=== PATIENT | female | born 1955 | race Caucasian/White ===

== ENCOUNTER 2016-06-30 11:56 | Emergency (ER) | payer MEDICARE ==
[~2016-06-30] VITALS: Ht 175.3 cm; Wt 69.0 kg
[~2016-06-30 11:56] MED LIST: BIOT10TA PO; CHOL1CAP8 PO; CINN500C PO; GLUCTAB6 PO; HEMAPLEX; HYOS0.128 PO; LACTCHW3 CHEW; LEVO25TA4 PO; LOPE2CAP PO; MELA10TA2 PO; PROBCAP4 PO; SELE1TAB PO; ZOFR4TAB PO
[2016-06-30 11:58] VITALS: BP 197/95; PULSE 95; RESP 18; TEMP 98.4; O2SAT 98
[2016-06-30] MEDS ORDERED: ASPIRIN 81 MG CHEW TAB PO ONE (12:30)
[2016-06-30] MEDS ORDERED: SODIUM CHLORIDE 0.9% FLUSH 10 ML FLUSH IVF PRN (12:30)
[2016-06-30] MEDS: NITROGLYCERIN 0.4 MG SL 25 TABS/BTL SL SCH ×3 (12:35→12:41)
[2016-06-30 12:42] VITALS: BP 175/105; PULSE 89; RESP 18; O2SAT 98
[2016-06-30 12:44] LABS: AUTOMATED NEUTROPHIL # 5.5 TH/MM3 (1.8-7.7); BASOPHIL # 0.1 TH/MM3 (0-0.2); BASOPHIL % 0.9 % (0.0-2.0); EOSINOPHIL # 0.1 TH/MM3 (0-0.4); EOSINOPHIL % 1.8 % (0.0-4.0); HEMATOCRIT 39.3 % (35.0-46.0); HEMO FLAGS DIFF FINAL; LYMPH % 18.7 % (9.0-44.0); LYMPHOCYTE # 1.5 TH/MM3 (1.0-4.8); MEAN CORPUSCULAR HGB CONC 33.4 % (32.0-36.0); MONO % 8.6 % (0.0-8.0); PLATELET COUNT 290 TH/MM3 (150-450); RED BLOOD COUNT 4.52 MIL/MM3 (4.00-5.30); RED CELL DISTRIBUTION WIDTH 13.6 % (11.6-17.2); WHITE BLOOD COUNT 7.9 TH/MM3 (4.0-11.0)
[2016-06-30] MEDS ORDERED: diphenhydrAMINE HCL 50 MG/ML VIAL IV PUSH ONE (12:45)
[2016-06-30 12:54] LABS: CHLORIDE 104 MEQ/L (98-107); POTASSIUM 3.6 MEQ/L (3.5-5.1); SODIUM (NA) 141 MEQ/L (136-145)
[2016-06-30 12:56] VITALS: BP 139/92; PULSE 93; RESP 18; O2SAT 98
[2016-06-30 12:57] LABS: ANION GAP 8 MEQ/L (5-15); BLOOD UREA NITROGEN 16 MG/DL (7-18); MAGNESIUM 1.9 MG/DL (1.5-2.5)
[2016-06-30 13:00] LABS: GLOMERULAR FILTRATION RATE 83 ML/MIN (>89)
[2016-06-30 13:03] LABS: APTT (PATIENT) 26.6 SEC (24.3-30.1); CREATINE KINASE 166 U/L (26-192); INTERNATIONAL NORMALIZED RATIO 0.9 RATIO
--- NOTE | 2016-06-30 13:04 | RADHPO ---
EXAM DATE/TIME: 06/30/2016 12:29 [facility] COMPARISON: No previous studies available for comparison. INDICATIONS : Chest pain. MEDICAL HISTORY : None. SURGICAL HISTORY : None. ENCOUNTER: Initial ACUITY: 1 day PAIN SCORE: 4/10 LOCATION: Bilateral chest FINDINGS: A single view of the chest demonstrates the lungs to be symmetrically aerated without evidence of mas s, infiltrate or effusion. The cardiomediastinal contours are unremarkable. Osseous structures are intact. CONCLUSION: 1. No acute cardiopulmonary disease. 1. Jan Summers MD on June 30, 2016 at 13:03 Board Certified Radiologist. This report was verified electronically.
[2016-06-30 13:16] LABS: CKMB 2.1 NG/ML (0.5-3.6)
[2016-06-30] MEDS ORDERED: IOHEXOL 350 MG/ML 10 ML VIAL (for RAD DIAG) IV ONE (13:57)
[2016-06-30 14:01] VITALS: BP 174/95; PULSE 81; RESP 18; O2SAT 99
--- NOTE | 2016-06-30 15:02 | RADHPO ---
EXAM DATE/TIME: 06/30/2016 13:33 [facility] COMPARISON: No previous studies available for comparison. INDICATIONS : Chest pressure. Short of breath. IV CONTRAST: 75 cc Omnipaque 350 (iohexol) IV RADIATION DOSE: 10.25 CTDIvol (mGy) MEDICAL HISTORY : Hypothyroidism. SURGICAL HISTORY : None. ENCOUNTER: Initial ACUITY: 1 day PAIN SCALE: 2/10 LOCATION: chest TECHNIQUE: Volumetric scanning of the chest was performed using a pulmonary embolism protocol MIP images were re constructed. Using automated exposure control and adjustment of the mA and/or kV according to patien t size, radiation dose was kept as low as reasonably achievable to obtain optimal diagnostic quality images. FINDINGS: PULMONARY ARTERIES: No filling defects are seen in the pulmonary arteries through the segmental level. LUNGS: Linear atelectasis seen involving the posterior segment of the right upper lobe adjacent to the major fissure. The lungs are otherwise clear. No mass or infiltrate. PLEURAE: There is no pleural thickening or pleural effusion. MEDIASTINUM: There is good visualization of the great vessels of the middle mediastinum. No evidence of mediastin al or hilar adenopathy/mass. MUSCULOSKELETAL: Within normal limits for patient age. MISCELLANEOUS: The visualized upper abdominal organs demonstrate no acute abnormality. CONCLUSION: 1. No PE. Minimal right upper lobe atelectasis. Gustavo Archuleta Jr., MD on June 30, 2016 at 14:56 Board Certified Radiologist. This report was verified electronically.
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
[2016-06-30 15:21] VITALS: BP 189/103; PULSE 82; O2SAT 98
--- NOTE | 2016-07-02 21:39 | EKG ---
Date Performed: 06/30/2016 Time Performed: 12:02:08 PTAGE: 61 years EKG: Sinus rhythm Normal ECG PREVIOUS TRACING : 11/02/2013 11.05 DOCTOR: Garry Calderon Interpretating Date/Time 07/02/2016 21:33:41
[2016-08-15] MEDS ORDERED: TRIA40P I-ARTICULR (14:07)
== END 2016-06-30 15:49 | disposition home or self-care (01) ==
LOC: PHED 11:56
DX: R07.89 Other chest pain (principal); E03.9 Hypothyroidism, unspecified; T78.40XA Allergy, unspecified, initial encounter
CPT/HCPCS: 71010; 71275; 80048; 82550; 82552; 83735; 84484; 85025; 85379; 85610; 85730; 93005; 96374; 99285; J1200; Q9967

== ENCOUNTER 2016-07-03 11:16 | Emergency (ER) | payer MEDICARE ==
[~2016-07-03] VITALS: Ht 175.3 cm; Wt 69.0 kg
[~2016-07-03 11:16] MED LIST changes: -HEMAPLEX
[2016-07-03 11:32] VITALS: BP 140/88; PULSE 98; RESP 18; TEMP 98.4; O2SAT 96
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
[2016-07-03] MEDS ORDERED: TRIA.1%T TOPICAL (12:21)
[2016-07-03] MEDS ORDERED: VIST25CA PO (12:21)
[2016-08-15] MEDS ORDERED: TRIA40P I-ARTICULR (14:07)
== END 2016-07-03 12:35 | disposition home or self-care (01) ==
LOC: PHEFT 11:16
DX: L29.9 Pruritus, unspecified (principal); D64.9 Anemia, unspecified; M19.90 Unspecified osteoarthritis, unspecified site; Z87.891 Personal history of nicotine dependence; Z79.899 Other long term (current) drug therapy

== ENCOUNTER 2016-11-28 14:57 | Emergency (ER) | payer MEDICARE ==
[~2016-11-28] VITALS: Ht 175.3 cm; Wt 70.0 kg
[~2016-11-28 14:57] MED LIST changes: -BIOT10TA PO; -CHOL1CAP8 PO; -CINN500C PO; -GLUCTAB6 PO; -HYOS0.128 PO; -LACTCHW3 CHEW; -LOPE2CAP PO; -MELA10TA2 PO; +NAPR500T PO; -PROBCAP4 PO; -SELE1TAB PO; +TRIAM.1%T TOPICAL; -ZOFR4TAB PO
[2016-11-28] MEDS ORDERED: IOHEXOL 350 MG/ML 10 ML VIAL (for RAD DIAG) IVCONTRAST ONE (14:58)
[2016-11-28 14:59] VITALS: BP 175/78; PULSE 79; RESP 18; TEMP 97.8; O2SAT 98
--- NOTE | 2016-11-28 15:14 | PD ---
Physical Exam Time Seen by Provider: 15:12 Narrative 61yo F sent by GI MD for bloody stool and RLQ abd pain stared this morning. +N , vomiting. Denies anticoagulants. Patient seen in triage. VS reviewed. Patient awaiting bed placement. Data Data Last Documented VS Vital Signs Date Time Temp Pulse Resp B/P (MAP) Pulse Ox O2 Delivery O2 Flow Rate FiO2 11/28/16 14:59 97.8 79 18 175/78 (110) 98 MDM Supervised Visit with JOAQUIN: Eloise Lucero Nov 28, 2016 15:14
[2016-11-28] MEDS ORDERED: SODIUM CHLORIDE 0.9% FLUSH 10 ML FLUSH IV FLUSH PRN (15:15)
[2016-11-28 15:56] VITALS: BP 133/70; PULSE 87; RESP 16; O2SAT 100
[2016-11-28 15:59] LABS: APTT (PATIENT) 25.2 SEC (24.3-30.1); AUTOMATED NEUTROPHIL # 7.2 TH/MM3 (1.8-7.7); BASOPHIL % 0.4 % (0.0-2.0); EOSINOPHIL # 0.4 TH/MM3 (0-0.4); EOSINOPHIL % 3.9 % (0.0-4.0); HEMATOCRIT 33.7 % (35.0-46.0); HEMO FLAGS DIFF FINAL; INTERNATIONAL NORMALIZED RATIO 0.9 RATIO; LYMPH % 13.5 % (9.0-44.0); LYMPHOCYTE # 1.3 TH/MM3 (1.0-4.8); MEAN CELL VOLUME 79.4 FL (80.0-100.0); MEAN CORPUSCULAR HEMOGLOBIN 25.1 PG (27.0-34.0); MEAN CORPUSCULAR HGB CONC 31.5 % (32.0-36.0); MONO % 8.1 % (0.0-8.0); NEUT % 74.1 % (16.0-70.0); PLATELET COUNT 319 TH/MM3 (150-450); RED BLOOD COUNT 4.24 MIL/MM3 (4.00-5.30); RED CELL DISTRIBUTION WIDTH 17.4 % (11.6-17.2); WHITE BLOOD COUNT 9.8 TH/MM3 (4.0-11.0)
[2016-11-28] MEDS ORDERED: MORPHINE SULFATE 4 MG/ML INJ IV PUSH ONE (16:00)
[2016-11-28] MEDS ORDERED: ONDANSETRON HCL 4 MG/2 ML VIAL IVP ONE (16:00)
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
[2016-11-28 16:17] LABS: ALT (GPT) 34 U/L (10-53); ANION GAP 6 MEQ/L (5-15); AST (GOT) 31 U/L (15-37); BICARBONATE 27.8 MEQ/L (21.0-32.0); BLOOD UREA NITROGEN 20 MG/DL (7-18); CHLORIDE 109 MEQ/L (98-107); GLOMERULAR FILTRATION RATE 83 ML/MIN (>89); POTASSIUM 3.9 MEQ/L (3.5-5.1); SODIUM (NA) 143 MEQ/L (136-145)
[2016-11-28 16:20] LABS: ALKALINE PHOSPHATASE 100 U/L (45-117); TOTAL BILIRUBIN ADULT 0.4 MG/DL (0.2-1.0)
[2016-11-28] MEDS ORDERED: SODIUM CHLOR 0.9% 1000 ML INJ 1,000 ML IV ONE (17:30)
--- NOTE | 2016-11-28 17:52 | RADRPT ---
EXAM DATE/TIME: 11/28/2016 17:19 [facility] COMPARISON: CT ABDOMEN & PELVIS W CONTRAST, January 26, 2016, 20:39. INDICATIONS : Right lower abdominal pain with rectal bleeding. IV CONTRAST: 68 cc Omnipaque 350 (iohexol) IV ORAL CONTRAST: No oral contrast ingested. RADIATION DOSE: 9.96 CTDIvol (mGy) MEDICAL HISTORY : Hypothyroidism. Anemia SURGICAL HISTORY : None. ENCOUNTER: Initial ACUITY: 1 day PAIN SCALE: 5/10 LOCATION: Right lower quadrant TECHNIQUE: Volumetric scanning of the abdomen and pelvis was performed. Using automated exposure control and ad justment of the mA and/or kV according to patient size, radiation dose was kept as low as reasonably achievable to obtain optimal diagnostic quality images. DICOM format image data is available electro nically for review and comparison. FINDINGS: LOWER LUNGS: The visualized lower lungs are clear. LIVER: Homogeneous density without lesion. There is no dilation of the biliary tree. No calcified gallston es. Gallbladder cys luminal structure without wall thickening SPLEEN: Normal size without lesion. PANCREAS: Within normal limits. KIDNEYS: Normal in size and shape. There is no mass, stone or hydronephrosis. ADRENAL GLANDS: Within normal limits. VASCULAR: There is no aortic aneurysm. BOWEL/MESENTERY: The stomach, small bowel, and colon demonstrate no acute abnormality. There is no free intraperitone al air or fluid. Duodenal diverticulum again appreciated . Question as to a few loops of borderline d ilated small bowel ileum in the pelvis. ABDOMINAL WALL: Within normal limits. RETROPERITONEUM: There is no lymphadenopathy. BLADDER: No wall thickening or mass. REPRODUCTIVE: Within normal limits. INGUINAL: There is no lymphadenopathy or hernia. MUSCULOSKELETAL: Within normal limits for patient age. Multilevel degenerative disc disease all levels lumbar spine wi th lower lumbar spine facet arthritic change. CONCLUSION: Questionable few loops of small bowel in the pelvis ileum mildly borderline dilated indeterminate sig nificance. Otherwise stable CT scan of the abdomen and pelvis. Loyd Gray MD on November 28, 2016 at 17:43 Board Certified Radiologist. This report was verified electronically.
[2016-11-28] MEDS ORDERED: PROT40TA PO (18:11)
[2016-11-28] MEDS ORDERED: PANTOPRAZOLE SODIUM 40 MG VIAL IVP ONE (18:15)
[2016-11-28 18:32] LABS: BLOOD, URINE NEG (NEG); COMMENT (UR) CULT NOT INDICATED; CULTURE IF INDICATED CULT NOT INDICATED; GLUCOSE,URINE NEG (NEG); KETONE, URINE NEG (NEG); NITRITE,URINE NEG (NEG); PH, URINE 7.5 (5.0-8.5); SQUAMOUS EPITHELIAL CELL URINE <1 /hpf (0-5); URINE COLOR LIGHT-YELLOW (YELLW/STRAW)
[2016-11-28 18:54] VITALS: BP 153/72
[2016-12-19] MEDS ORDERED: DICL1GEL7 TOPICAL (11:22)
== END 2016-11-28 19:30 | disposition home or self-care (01) ==
LOC: NEPC 14:57
DX: K92.2 Gastrointestinal hemorrhage, unspecified (principal); E86.0 Dehydration; M19.90 Unspecified osteoarthritis, unspecified site; D50.8 Other iron deficiency anemias; E03.9 Hypothyroidism, unspecified; Z72.0 Tobacco use; Z88.0 Allergy status to penicillin; Z79.899 Other long term (current) drug therapy
CPT/HCPCS: 74177; 80053; 81001; 83690; 85025; 85610; 85730; 96374; 96375; 99285; C9113; J2270; J2405; J7030; Q9967

== ENCOUNTER 2017-05-04 14:14 | Emergency (ER) | payer MEDICARE ==
[~2017-05-04] VITALS: Ht 175.3 cm; Wt 67.0 kg
[~2017-05-04 14:14] MED LIST changes: +DICL1GEL7 TOPICAL; +HEMAPLEX; -NAPR500T PO; +PROT40TA PO
[2017-05-04 14:27] VITALS: BP 144/67; PULSE 91; RESP 16; TEMP 98.1; O2SAT 97
== END 2017-05-04 15:29 | disposition left against medical advice (07) ==
LOC: PHED 14:14
DX: R10.9 Unspecified abdominal pain (principal)
CPT/HCPCS: 99281